=== PATIENT | male | born 1950 | race African-American/Black ===

== ENCOUNTER 2016-10-28 06:33 | Emergency (ER) | payer OTHER, MEDICAID ==
[~2016-10-28] VITALS: Ht 182.9 cm; Wt 84.0 kg
[~2016-10-28 06:33] MED LIST: HYDR4TAB23 PO; PREG100C PO; ZOLP5TAB2; atenolol
[2016-10-28] MEDS ORDERED: ACETAMINOPHEN 325MG TABLET PO STA (07:13)
[2016-10-28] MEDS ORDERED: CYCLOBENZAPRINE 10MG TABLET PO ONE (07:15)
[2016-10-28] MEDS ORDERED: PREGABALIN 50 MG CAPSULE PO ONE ×2 (07:15→13:45)
[2016-10-28 07:35] LABS: BASOPHILS % 0.8 % (0.0-2.0); EOSINOPHILS % 2.2 % (0.0-5.0); HEMATOCRIT. 40.3 % (42.0-52.0); HEMOGLOBIN. 13.7 g/dL (14.0-18.0); LYMPHOCYTES % 26.3 % (20.0-50.0); MEAN CORPUSCULAR HEMOGLOBIN 27.2 pg (28.0-32.0); MEAN PLATELET VOLUME 7.7 fl (7.4-10.4); MONOCYTES % 9.2 % (2.0-8.0); NEUTROPHILS % 61.5 % (40.0-76.0); PLATELET 234 x1000/uL (130-400); RED BLOOD CELL COUNT 5.04 mill/uL (4.7-6.1); RED CELL DISTRIBUTION WIDTH 14.4 % (11.6-14.6); WHITE BLOOD COUNT 6.3 x1000/uL (4.5-11.0)
[2016-10-28 07:46] LABS: ALBUMIN 3.3 g/dL (3.4-5.0); ANION GAP 12; CALCIUM 9.4 mg/dL (8.5-10.1); CARBON DIOXIDE 29 mEq/L (21-32); CHLORIDE 101 mEq/L (98-107); INDEX HEMOLYSI 1 (1-3); INDEX ICTERIC 1 (1-4); INDEX LIPEMIC 1 (1-3); UREA NITROGEN BLOOD 10 mg/dL (7-21)
[2016-10-28 07:50] LABS: ACETAMINOPHEN < 2 ug/mL (10-30); ALANINE AMINOTRANSFERASE 26 IU/L (13-61); ETHANOL BLOOD < 10 mg/dL; eGFR > 60 mL/min (>60)
[2016-10-28] MEDS ORDERED: PREGABALIN 50 MG CAPSULE PO SCH (09:00)
[2016-10-28 09:30] LABS: CLARITY URINE CLEAR (CLEAR); COLOR URINE YELLOW (YELLOW); GLUCOSE URINE NEGATIVE (NEGATIVE); KETONES URINE NEGATIVE (NEGATIVE); LEUKOCYTE ESTERASE URINE NEGATIVE (NEGATIVE); NITRITE URINE NEGATIVE (NEGATIVE); OCCULT BLOOD URINE NEGATIVE (NEGATIVE); PROTEIN URINE NEGATIVE (NEGATIVE); SPECIFIC GRAVITY URINE 1.007 (1.005-1.030)
[2016-10-28 09:45] LABS: *AMPHETAMINES SCREEN URINE NEGATIVE (NEGATIVE); *BARBITURATES SCREEN URINE NEGATIVE (NEGATIVE); *BENZODIAZEPINES SCREEN URINE NEGATIVE (NEGATIVE); *COCAINE SCREEN URINE PRESUMTIVE POSITIVE (NEGATIVE); CANNABINOID URINE SCREEN NEGATIVE (NEGATIVE); ECSTASY MDMA SCREEN URINE NEGATIVE (NEGATIVE); METHADONE URINE SCREEN NEGATIVE (NEGATIVE); OPIATES URINE SCREEN PRESUMTIVE POSITIVE (NEGATIVE); PHENCYCLIDINE URINE SCREEN NEGATIVE (NEGATIVE)
[2016-10-28] MEDS ORDERED: HYDROCODONE/ACETAMINOPHEN 5/325MG TABLET PO ONE (13:15)
[2016-10-28] MEDS ORDERED: PREGABALIN 50 MG CAPSULE PO NR (16:30)
[2016-10-28] MEDS ORDERED: IBUPROFEN 800MG TABLET PO ONE (23:15)
[2016-10-29] MEDS ORDERED: ZOLPIDEM TARTRATE 5MG TABLET PO ONE (03:00)
[2016-10-29] MEDS ORDERED: PREGABALIN 50 MG CAPSULE PO ONE ×2 (09:30→13:30)
[2016-10-29] MEDS ORDERED: HYDROCODONE/ACETAMINOPHEN 5/325MG TABLET PO ONE (09:45)
[2016-10-29] MEDS: PREGABALIN 50 MG CAPSULE PO SCH ×2 (22:15→22:30)
[2016-10-30] MEDS ORDERED: HYDROCODONE/ACETAMINOPHEN 5/325MG TABLET PO ONE ×4 (00:15→20:00)
[2016-10-30] MEDS ORDERED: PREGABALIN 25MG CAPSULE PO ONE (10:30)
[2016-10-30] MEDS: PREGABALIN 50 MG CAPSULE PO SCH (12:32)
[2016-10-30] MEDS ORDERED: PREGABALIN 50 MG CAPSULE PO ONE (16:00)
[2016-10-30 20:33] VITALS: BP 143/84
== END 2016-10-31 01:15 | disposition home or self-care (01) ==
LOC: ER 06:53
DX: F32.9 Major depressive disorder, single episode, unspecified (principal); I10 Essential (primary) hypertension; G89.29 Other chronic pain; M54.5 Low back pain; R05 Cough; Z96.659 Presence of unspecified artificial knee joint; R51 Headache
CPT/HCPCS: 36415; 70450; 71010; 80053; 80305; 80307; 80329; 81003; 84484; 85025; 93005; 99285; G0482

== ENCOUNTER 2017-05-19 22:41 | Emergency (ER) | payer OTHER, MEDICARE, MEDICAID ==
[~2017-05-19] VITALS: Ht 185.4 cm; Wt 84.0 kg
[~2017-05-19 22:41] MED LIST changes: -HYDR4TAB23 PO; +HYDR4TAB4 PO
[2017-05-19 23:33] LABS: INR 1.1; PROTHROMBIN TIME 11.4 sec (9.4-11.6)
[2017-05-19 23:34] LABS: BASOPHILS % 1.3 % (0.0-2.0); HEMATOCRIT. 36.9 % (42.0-52.0); HEMOGLOBIN. 12.3 g/dL (14.0-18.0); LYMPHOCYTES % 41.4 % (20.0-50.0); MEAN CORPUSCULAR HEMOGLOBIN 28.4 pg (28.0-32.0); MEAN CORPUSCULAR VOLUME 85.2 fL (80.0-94.0); MEAN PLATELET VOLUME 7.9 fl (7.4-10.4); NEUTROPHILS % 43.3 % (40.0-76.0); PLATELET 193 x1000/uL (130-400); RED BLOOD CELL COUNT 4.34 mill/uL (4.7-6.1); RED CELL DISTRIBUTION WIDTH 14.3 % (11.6-14.6)
[2017-05-19 23:47] LABS: CARBON DIOXIDE 30 mEq/L (21-32); CHLORIDE 99 mEq/L (98-107); TROPONIN I < 0.02 ng/mL (0.00-0.04)
[2017-05-20] MEDS ORDERED: DIAZEPAM 5 MG/ML 2ML CPJ IV ONE (00:15)
[2017-05-20] MEDS ORDERED: DIAZEPAM 5 MG TABLET PO SCH (00:28)
[2017-05-20 01:16] LABS: *AMPHETAMINES SCREEN URINE PRESUMTIVE POSITIVE (NEGATIVE); *BARBITURATES SCREEN URINE NEGATIVE (NEGATIVE); *BENZODIAZEPINES SCREEN URINE NEGATIVE (NEGATIVE); *COCAINE SCREEN URINE PRESUMTIVE POSITIVE (NEGATIVE); CANNABINOID URINE SCREEN PRESUMTIVE POSITIVE (NEGATIVE); METHADONE URINE SCREEN NEGATIVE (NEGATIVE); OPIATES URINE SCREEN PRESUMTIVE POSITIVE (NEGATIVE); PHENCYCLIDINE URINE SCREEN NEGATIVE (NEGATIVE)
[2017-05-20] MEDS ORDERED: IOHEXOL-350 100 ML BOTTLE ONE (06:16)
[2017-05-20 06:21] VITALS: BP 127/76
== END 2017-05-20 07:22 | disposition home or self-care (01) ==
LOC: ER 22:54
DX: M54.9 Dorsalgia, unspecified (principal); I71.2 Thoracic aortic aneurysm, without rupture; F14.10 Cocaine abuse, uncomplicated; F12.10 Cannabis abuse, uncomplicated; E78.00 Pure hypercholesterolemia, unspecified; F15.10 Other stimulant abuse, uncomplicated; R07.9 Chest pain, unspecified; I11.9 Hypertensive heart disease without heart failure; I51.7 Cardiomegaly; F17.200 Nicotine dependence, unspecified, uncomplicated; R06.02 Shortness of breath
CPT/HCPCS: 36415; 71010; 71275; 74174; 80053; 80305; 83880; 84484; 85025; 85610; 93005; 99285; Q9967; Z7610

== ENCOUNTER 2018-01-20 04:43 | Emergency (ER) | payer OTHER, MEDICAID ==
[~2018-01-20] VITALS: Ht 188 cm; Wt 81.0 kg
[2018-01-20] MEDS ORDERED: ONDANSETRON HCL 4MG/2ML VIAL IV STA (05:54)
[2018-01-20] MEDS ORDERED: MORPHINE SULFATE 4 MG/ML CPJ (NOT FOR IM USE) IV STA (05:54)
[2018-01-20] MEDS ORDERED: KETOROLAC 30MG/ML VIAL IV STA (05:54)
[2018-01-20] MEDS ORDERED: SODIUM CHLORIDE 0.9% 1,000 ML IV ONE (05:54)
[2018-01-20 06:15] LABS: BASOPHILS % 1.7 % (0.0-2.0); EOSINOPHILS % 5.3 % (0.0-5.0); HEMATOCRIT. 38.3 % (42.0-52.0); LYMPHOCYTES % 43.1 % (20.0-50.0); MEAN CORPUSCULAR VOLUME 82.5 fL (80.0-94.0); MONOCYTES % 10.3 % (2.0-8.0); NEUTROPHILS % 39.6 % (40.0-76.0); PLATELET 201 x1000/uL (130-400); RED BLOOD CELL COUNT 4.64 mill/uL (4.7-6.1); RED CELL DISTRIBUTION WIDTH 14.5 % (11.6-14.6)
[2018-01-20 06:22] LABS: INR 1.1
[2018-01-20 06:25] LABS: CHLORIDE 104 mEq/L (98-107)
[2018-01-20] MEDS ORDERED: PREGABALIN 25MG CAPSULE PO ONE (18:15)
[2018-01-21] MEDS: PREGABALIN 25MG CAPSULE PO SCH ×3 (08:45→21:30)
[2018-01-22] MEDS: PREGABALIN 25MG CAPSULE PO SCH (09:48)
[2018-01-22 12:24] LABS: CLARITY URINE CLEAR (CLEAR); COLOR URINE YELLOW (YELLOW); KETONES URINE NEGATIVE (NEGATIVE); LEUKOCYTE ESTERASE URINE NEGATIVE (NEGATIVE); NITRITE URINE NEGATIVE (NEGATIVE); OCCULT BLOOD URINE NEGATIVE (NEGATIVE); PH URINE >=9.0 (4.5-8.0); PROTEIN URINE NEGATIVE (NEGATIVE); SPECIFIC GRAVITY URINE 1.013 (1.005-1.030)
[2018-01-22 12:49] VITALS: BP 124/74
[2018-01-22 13:35] LABS: *COCAINE SCREEN URINE PRESUMTIVE POSITIVE (NEGATIVE)
[2018-01-22 13:36] LABS: *AMPHETAMINES SCREEN URINE NEGATIVE (NEGATIVE); *BARBITURATES SCREEN URINE NEGATIVE (NEGATIVE); CANNABINOID URINE SCREEN PRESUMTIVE POSITIVE (NEGATIVE); METHADONE URINE SCREEN NEGATIVE (NEGATIVE); OPIATES URINE SCREEN PRESUMTIVE POSITIVE (NEGATIVE); PHENCYCLIDINE URINE SCREEN NEGATIVE (NEGATIVE)
[2018-01-22 13:37] LABS: *BENZODIAZEPINES SCREEN URINE NEGATIVE (NEGATIVE)
== END 2018-01-22 13:13 | disposition home or self-care (01) ==
LOC: ER 04:43
DX: M51.36 Other intervertebral disc degeneration, lumbar region (principal); M19.90 Unspecified osteoarthritis, unspecified site; G89.29 Other chronic pain; M54.5 Low back pain; R04.0 Epistaxis; I10 Essential (primary) hypertension; G62.9 Polyneuropathy, unspecified; F17.200 Nicotine dependence, unspecified, uncomplicated; Z96.651 Presence of right artificial knee joint; Z98.890 Other specified postprocedural states; Z79.899 Other long term (current) drug therapy; Z87.828 Personal history of other (healed) physical injury and trauma
CPT/HCPCS: 36415; 71045; 72110; 80053; 80305; 81003; 83880; 84484; 85025; 85610; 93005; 96374; 96375; 99285; J1885; J2270; J2405; J7030; Z7610

== ENCOUNTER 2019-08-19 11:52 | Inpatient (IN) | payer MEDICARE, MEDICAID ==
[~2019-08-19] VITALS: Ht 188 cm; Wt 97.1 kg
[2019-08-19 12:20] LABS: BASOPHILS % 0.4 % (0.0-2.0); EOSINOPHILS % 2.7 % (0.0-5.0); HEMATOCRIT. 34.8 % (42.0-52.0); HEMOGLOBIN. 12.4 g/dL (14.0-18.0); LYMPHOCYTES % 39.4 % (20.0-50.0); MEAN CORPUSCULAR HEMOGLOBIN 29.5 pg (28.0-32.0); MEAN PLATELET VOLUME 7.2 fl (7.4-10.4); MONOCYTES % 12.3 % (2.0-8.0); NEUTROPHILS % 45.2 % (40.0-76.0); PLATELET 267 x1000/uL (130-400); RED BLOOD CELL COUNT 4.19 mill/uL (4.7-6.1)
[2019-08-19 12:28] LABS: CHLORIDE 101 mEq/L (98-107)
[2019-08-19] MEDS ORDERED: ONDANSETRON HCL 4MG/2ML INJ IV SCH (14:15)
[2019-08-19] MEDS ORDERED: ENOXAPARIN 100MG/ML SYR SUBCUT SCH (14:15)
[2019-08-19] MEDS ORDERED: MORPHINE SULFATE 4 MG/ML CPJ (NOT FOR IM USE) IV SCH (14:15)
[2019-08-19] MEDS ORDERED: ENOXAPARIN 40MG/0.4ML SYR SUBCUT SCH (14:30)
[2019-08-19] MEDS ORDERED: ONDANSETRON HCL 4MG/2ML INJ IV PRN (14:30)
[2019-08-19] MEDS ORDERED: MAGNESIUM/ALUMINUM HYDROXIDE/SIMETHICONE 30ML UDC PO PRN (14:30)
[2019-08-19] MEDS ORDERED: GUAIFENESIN 200MG/10ML SUGAR FREE UDC PO PRN (14:30)
[2019-08-19] MEDS ORDERED: IPRATROPIUM/ALBUTEROL 0.5-3(2.5)MG/3ML NEB NEB PRN (14:30)
[2019-08-19] MEDS ORDERED: DOCUSATE SODIUM 100MG CAPSULE PO PRN (14:30)
[2019-08-19] MEDS ORDERED: NITROGLYCERIN 0.4MG TABLET SL SL PRN (14:30)
[2019-08-19] MEDS ORDERED: CLONIDINE 0.1MG TABLET PO PRN (14:30)
[2019-08-19 14:55] LABS: INR 1.1; PARTIAL THROMBOPLASTIN TIME 28.5 sec (23.4-31.0); PROTHROMBIN TIME 11.4 sec (9.6-11.0)
[2019-08-19 16:31] LABS: INR 1.1; PROTHROMBIN TIME 11.6 sec (9.6-11.0)
[2019-08-19 16:32] LABS: ETHANOL BLOOD < 10 mg/dL
[2019-08-19 16:35] LABS: LDL CHOLESTEROL 86 mg/dL (5-100)
[2019-08-19 16:37] LABS: HDL CHOLESTEROL 32 mg/dL (40-59)
[2019-08-19 16:40] LABS: TOTAL IRON BINDING CAPACITY 340 ug/dL (250-450)
[2019-08-19 16:53] LABS: FOLIC ACID (FOLATE) SERUM 12.5 ng/mL (>5.38)
[2019-08-19] MEDS: LORAZEPAM 0.5MG TABLET PO PRN (17:22)
[2019-08-19 22:46] LABS: *BENZODIAZEPINES SCREEN URINE NEGATIVE (NEGATIVE); *COCAINE SCREEN URINE PRESUMTIVE POSITIVE (NEGATIVE)
[2019-08-19 22:47] LABS: *AMPHETAMINES SCREEN URINE NEGATIVE (NEGATIVE); *BARBITURATES SCREEN URINE NEGATIVE (NEGATIVE); CANNABINOID URINE SCREEN NEGATIVE (NEGATIVE); METHADONE URINE SCREEN NEGATIVE (NEGATIVE); OPIATES URINE SCREEN PRESUMTIVE POSITIVE (NEGATIVE); PHENCYCLIDINE URINE SCREEN NEGATIVE (NEGATIVE)
[2019-08-19] MEDS: MORPHINE SULFATE 2 MG/ML CPJ (NOT FOR IM USE) IV PRN (23:48)
[2019-08-19 23:58] LABS: CREATINE KINASE 355 IU/L (39-308)
[2019-08-20] LABS: CREATINE KINASE MB FRACTION 5.5 ng/mL (0.5-3.6)
[2019-08-20 01:00] VITALS: BP 131/83
[2019-08-20 01:24] VITALS: BP 131/83
[2019-08-20] MEDS: LORAZEPAM 0.5MG TABLET PO PRN ×2 (01:49→18:38)
[2019-08-20] MEDS: ZOLPIDEM TARTRATE 5MG TABLET PO PRN ×2 (01:49→20:41)
[2019-08-20] MEDS: MORPHINE SULFATE 2 MG/ML CPJ (NOT FOR IM USE) IV PRN ×5 (03:50→23:56)
[2019-08-20 08:00] VITALS: BP 104/63
[2019-08-20 08:00] LABS: CREATINE KINASE 293 IU/L (39-308)
[2019-08-20 08:01] LABS: CREATINE KINASE MB FRACTION 4.2 ng/mL (0.5-3.6)
[2019-08-20] MEDS: ENOXAPARIN 40MG/0.4ML SYR SUBCUT SCH (08:05)
[2019-08-20] MEDS: FAMOTIDINE 20MG TABLET PO SCH ×2 (08:06→20:41)
[2019-08-20] MEDS: ASPIRIN 325MG EC TABLET PO SCH (08:06)
[2019-08-20] MEDS: METOPROLOL TARTRATE 25MG TABLET PO SCH ×2 (08:06→20:41)
[2019-08-20] MEDS ORDERED: IOHEXOL-350 100 ML BOTTLE ONE (11:43)
[2019-08-20 12:00] VITALS: BP 110/70
[2019-08-20] MEDS: KETOROLAC 15MG/ML VIAL IV PRN ×2 (12:25→20:52)
[2019-08-20] MEDS ORDERED: ATEN-42 PO (12:52)
[2019-08-20] MEDS ORDERED: PREG200C MT (12:52)
[2019-08-20] MEDS ORDERED: ASPI-986 PO (12:52)
[2019-08-20] MEDS ORDERED: RISP2 PO (12:52)
[2019-08-20] MEDS: PREGABALIN 50 MG CAPSULE PO SCH ×2 (13:21→21:35)
[2019-08-20 20:00] VITALS: BP 126/88
[2019-08-20] MEDS: RISPERIDONE 1MG TABLET PO SCH (20:41)
[2019-08-20] MEDS ORDERED: PREGABALIN 75MG CAPSULE PO SCH ×2 (21:00)
[2019-08-21] VITALS: BP 129/85
[2019-08-21 04:00] VITALS: BP 118/76
[2019-08-21] MEDS: MORPHINE SULFATE 2 MG/ML CPJ (NOT FOR IM USE) IV PRN ×5 (04:11→22:25)
[2019-08-21] MEDS: PREGABALIN 50 MG CAPSULE PO SCH ×3 (06:04→21:33)
[2019-08-21 08:00] VITALS: BP 116/66
[2019-08-21] MEDS: METOPROLOL TARTRATE 25MG TABLET PO SCH ×2 (08:32→20:31)
[2019-08-21] MEDS: FAMOTIDINE 20MG TABLET PO SCH ×2 (08:32→20:31)
[2019-08-21] MEDS: ASPIRIN 325MG EC TABLET PO SCH (08:32)
[2019-08-21] MEDS: ENOXAPARIN 40MG/0.4ML SYR SUBCUT SCH (08:42)
[2019-08-21] MEDS: LORAZEPAM 0.5MG TABLET PO PRN ×2 (10:17→18:55)
[2019-08-21 12:00] VITALS: BP 121/73
[2019-08-21 16:00] VITALS: BP 106/69
[2019-08-21 20:00] VITALS: BP 132/80
[2019-08-21] MEDS: RISPERIDONE 1MG TABLET PO SCH (20:31)
[2019-08-21] MEDS: ZOLPIDEM TARTRATE 5MG TABLET PO PRN (20:36)
[2019-08-22] VITALS: BP 114/77
[2019-08-22] MEDS: MORPHINE SULFATE 2 MG/ML CPJ (NOT FOR IM USE) IV PRN ×5 (02:29→20:24)
[2019-08-22 04:00] VITALS: BP 120/72
[2019-08-22] MEDS: PREGABALIN 50 MG CAPSULE PO SCH ×3 (05:08→21:47)
[2019-08-22 08:00] VITALS: BP 104/66
[2019-08-22] MEDS: FAMOTIDINE 20MG TABLET PO SCH ×2 (08:57→20:24)
[2019-08-22] MEDS: METOPROLOL TARTRATE 25MG TABLET PO SCH ×2 (08:57→21:48)
[2019-08-22] MEDS: ASPIRIN 325MG EC TABLET PO SCH (08:57)
[2019-08-22] MEDS: ENOXAPARIN 40MG/0.4ML SYR SUBCUT SCH (08:57)
[2019-08-22] MEDS: LORAZEPAM 0.5MG TABLET PO PRN ×3 (09:02→23:04)
[2019-08-22 12:00] VITALS: BP 127/74
[2019-08-22 16:00] VITALS: BP 107/63
[2019-08-22 20:00] VITALS: BP 113/74
[2019-08-22] MEDS: RISPERIDONE 1MG TABLET PO SCH (20:24)
[2019-08-22] MEDS: ZOLPIDEM TARTRATE 5MG TABLET PO PRN (21:47)
[2019-08-22] MEDS: ACETAMINOPHEN 325MG TABLET PO PRN (23:08)
[2019-08-23] VITALS: BP 100/55
[2019-08-23] MEDS: MORPHINE SULFATE 2 MG/ML CPJ (NOT FOR IM USE) IV PRN ×6 (01:02→22:25)
[2019-08-23 05:00] VITALS: BP 117/68
[2019-08-23] MEDS: LORAZEPAM 0.5MG TABLET PO PRN ×3 (05:29→20:36)
[2019-08-23 08:00] VITALS: BP 110/56
[2019-08-23] MEDS: FAMOTIDINE 20MG TABLET PO SCH ×2 (08:29→20:31)
[2019-08-23] MEDS: ASPIRIN 325MG EC TABLET PO SCH (08:29)
[2019-08-23] MEDS: PREGABALIN 50 MG CAPSULE PO SCH ×3 (08:29→21:15)
[2019-08-23] MEDS: ENOXAPARIN 40MG/0.4ML SYR SUBCUT SCH (08:29)
[2019-08-23] MEDS: METOPROLOL TARTRATE 25MG TABLET PO SCH ×2 (08:29→20:32)
[2019-08-23 12:00] VITALS: BP 107/63
[2019-08-23] MEDS: KETOROLAC 15MG/ML VIAL IV PRN ×2 (13:09→20:33)
[2019-08-23] MEDS: TRAMADOL 50MG TABLET PO PRN (14:44)
[2019-08-23 16:00] VITALS: BP 126/75
[2019-08-23 20:00] VITALS: BP 106/67
[2019-08-23] MEDS: RISPERIDONE 1MG TABLET PO SCH (20:31)
[2019-08-23] MEDS: ZOLPIDEM TARTRATE 5MG TABLET PO PRN (21:17)
[2019-08-24] VITALS (7 sets, daily range): BP systolic 106–128; BP diastolic 57–84
[2019-08-24] MEDS: MORPHINE SULFATE 2 MG/ML CPJ (NOT FOR IM USE) IV PRN ×3 (02:24→11:32)
[2019-08-24] MEDS: PREGABALIN 50 MG CAPSULE PO SCH ×3 (05:38→21:28)
[2019-08-24] MEDS: KETOROLAC 15MG/ML VIAL IV PRN ×2 (05:38→13:06)
[2019-08-24] MEDS: ENOXAPARIN 40MG/0.4ML SYR SUBCUT SCH (08:20)
[2019-08-24] MEDS: FAMOTIDINE 20MG TABLET PO SCH ×2 (08:21→21:28)
[2019-08-24] MEDS: ASPIRIN 325MG EC TABLET PO SCH (08:21)
[2019-08-24] MEDS: TRAMADOL 50MG TABLET PO PRN ×3 (08:21→22:41)
[2019-08-24] MEDS: METOPROLOL TARTRATE 25MG TABLET PO SCH ×2 (09:00→21:00)
[2019-08-24] MEDS ORDERED: KETOROLAC 15MG/ML VIAL IV PRN (15:15)
[2019-08-24] MEDS: ACETAMINOPHEN 325MG TABLET PO PRN (19:58)
[2019-08-24] MEDS: RISPERIDONE 1MG TABLET PO SCH (21:28)
== END 2019-08-24 23:08 | DRG 313 ==
LOC: ER 11:52 → 5WST 14:09 → SUPCPDRO 14:29 → ENRESERV 22:57
PROVIDERS: ADMIT Internal Medicine; ATTEND Internal Medicine
DX: R07.89 Other chest pain (principal); E87.1 Hypo-osmolality and hyponatremia; J84.9 Interstitial pulmonary disease, unspecified; G89.29 Other chronic pain; M54.9 Dorsalgia, unspecified; D63.8 Anemia in other chronic diseases classified elsewhere; G62.9 Polyneuropathy, unspecified; G83.9 Paralytic syndrome, unspecified; J44.9 Chronic obstructive pulmonary disease, unspecified; M19.90 Unspecified osteoarthritis, unspecified site; F17.210 Nicotine dependence, cigarettes, uncomplicated; F14.10 Cocaine abuse, uncomplicated; Z96.659 Presence of unspecified artificial knee joint; I10 Essential (primary) hypertension; Z79.899 Other long term (current) drug therapy
CPT/HCPCS: 36415; 71045; 71275; 80053; 80061; 80305; 80320; 82550; 82553; 82607; 82746; 83036; 83540; 83550; 83880; 84484; 85025; 85379; 93005; 93306; 93970; 96372; 97162; 97166; 97530; 99291; J1650; J1885; J2270; J2405; Q9967; G0480